=== PATIENT | male | born 1985 | race Caucasian/White ===

== ENCOUNTER 2023-08-21 12:47 | Emergency (ER) | payer MEDICAID ==
[~2023-08-21] VITALS: Ht 175.3 cm; Wt 72.0 kg
[2023-08-21 13:15] VITALS: TEMP 98.4
[2023-08-21 13:55] LABS: BASOPHILS % (AUTO) 0.5 % (0-1); EOSINOPHILS # (AUTO) 0.2 X10'3 (0-0.9); EOSINOPHILS % (AUTO) 3.2 % (0-6); HEMATOCRIT 43.3 % (42.0-52.0); HEMOGLOBIN 14.3 g/dl (14.0-17.9); LYMPHOCYTES # (AUTO) 1.6 X10'3 (1.1-4.8); LYMPHOCYTES % (AUTO) 20.4 % (21-51); MEAN CORPUSCULAR HEMOGLOBIN 33.3 PG (27.0-31.0); MEAN CORPUSCULAR HGB CONC 33.1 g/dL (33.0-36.5); MEAN CORPUSCULAR VOLUME 100.6 FL (78-98); MEAN PLATELET VOLUME 7.1 FL (7.4-10.4); MONOCYTES # (AUTO) 0.7 X10'3 (0-0.9); MONOCYTES % (AUTO) 9.2 % (2-12); NEUTROPHILS # (AUTO) 5.1 X10'3 (1.8-7.7); NEUTROPHILS % (AUTO) 66.7 % (42-75); PLATELET COUNT 196 X10'3 (140-440); RED CELL DISTRIBUTION WIDTH 15.4 % (11.5-14.5); WHITE BLOOD COUNT 7.6 X10'3 (4.5-11.0)
[2023-08-21 14:27] LABS: ALBUMIN 3.8 G/DL (3.4-5.0); ANION GAP 15 (8-16); BLOOD UREA NITROGEN 7 MG/DL (7-18); BUN/CREATININE RATIO 9.1 (10.0-20.0); CALCIUM 8.7 MG/DL (8.5-10.1); CHLORIDE 107 MMOL/L (99-107); CREATININE 0.77 MG/DL (0.60-1.10); GLUCOSE 76 MG/DL (70-104); POTASSIUM 3.6 MMOL/L (3.5-5.1); SODIUM 144 MMOL/L (135-145); TOTAL CARBON DIOXIDE 22.4 MMOL/L (24-32); eCRCL 131 ML/MIN; eGFR > 90 ML/MIN
[2023-08-21] MEDS: ampicillin/sulbac 3gm/NS 100ml 100 ML IV STA (14:57)
[2023-08-21] MEDS ORDERED: AMOX-580 PO (15:12)
[2023-08-21] MEDS: TETanus/Pertussis (Acell)/Diphther VAC/PF (Tdap-Adult) 0.5ml syringe IMVAC ONE (15:28)
[2023-08-21 16:27] VITALS: BP 130/91; PULSE 80; RESP 16; O2SAT 97
== END 2023-08-21 16:32 | disposition home or self-care (01) ==
LOC: ER 12:48
DX: S61.256A Open bite of right little finger without damage to nail, initial encounter (principal); L03.011 Cellulitis of right finger; F12.90 Cannabis use, unspecified, uncomplicated; F10.90 Alcohol use, unspecified, uncomplicated; Z91.013 Allergy to seafood; W55.01XA Bitten by cat, initial encounter; Y93.89 Activity, other specified; Y92.89 Other specified places as the place of occurrence of the external cause; Y99.8 Other external cause status
CPT/HCPCS: 36415; 80048; 84145; 85025; 87040; 87186; 90471; 90715; 96365; 99284; J0295